=== PATIENT | male | born 1980 | race Caucasian/White ===

== ENCOUNTER 2022-11-12 07:51 | Outpatient (CLI) | payer BC, SELFPAY ==
--- NOTE | 2022-11-12 08:38 | W.ANESCHARGE ---
Anesthesia Charges Start Date/Time Anesthesia Start Date: 11/12/22 Anesthesia Start Time: 08:31 Stop Date/Time Anesthesia Stop Date: 11/12/22 Anesthesia Stop Time: 09:08
--- NOTE | 2022-11-12 09:12 | W.ANESCHARGE ---
Anesthesia Charges Start Date/Time Anesthesia Start Date: 11/12/22 Anesthesia Start Time: 08:31 Stop Date/Time Anesthesia Stop Date: 11/12/22 Anesthesia Stop Time: 09:08
== END 2022-11-12 07:52 | disposition home or self-care (01) ==
LOC: OP CLINIC 07:57
PROVIDERS: PCP Family Medicine; Visit Provider Internal Medicine Gastroenterology
DX: Z12.11 Encounter for screening for malignant neoplasm of colon (principal); K63.5 Polyp of colon; Z86.010 Personal history of colon polyps; K21.00 Gastro-esophageal reflux disease with esophagitis, without bleeding; K44.9 Diaphragmatic hernia without obstruction or gangrene; R10.13 Epigastric pain
CPT/HCPCS: 00813; 43239; 45385; 88342; J2704; J3490